=== PATIENT | female | born 1995 | race Caucasian/White ===

== ENCOUNTER 2017-02-06 20:33 | Inpatient (IN) | payer BC ==
[~2017-02-06] VITALS: Ht 144.8 cm; Wt 41.9 kg
[2017-02-06 21:40] VITALS: Ht 144.8 cm; Wt 41.9 kg
[2017-02-06] MEDS ORDERED: ONDANSETRON 4 MG TAB PO PRN (22:00)
[2017-02-06] MEDS ORDERED: PROMETHAZINE 25 MG SUPP PR PRN (22:00)
[2017-02-06] MEDS ORDERED: ACETAMINOPHEN/CODEINE #3 TAB PO PRN (22:00)
[2017-02-06] MEDS ORDERED: ACET1TAB40 PO (22:09)
[2017-02-06] MEDS ORDERED: ONDA4TAB14 PO (22:09)
[2017-02-06] MEDS ORDERED: PROM25SU40 RC (22:09)
[2017-02-06] MEDS ORDERED: PANT40TA4 PO (22:09)
[2017-02-06] MEDS: DEXTROSE 5%-0.9% NACL 1,000 ML IV SCH (22:58)
[2017-02-06] MEDS: HYDROmorphONE 1 MG/ML SYG IV PRN (22:59)
[2017-02-06] MEDS ORDERED: ACETAMINOPHEN 325 MG TAB PO PRN (23:00)
[2017-02-06] MEDS ORDERED: ONDANSETRON 4 MG INJ IV PRN (23:00)
[2017-02-07] MEDS: PANTOPRAZOLE 40 MG INJ IV SCH (05:23)
[2017-02-07] MEDS: HYDROmorphONE 1 MG/ML SYG IV PRN ×2 (05:27→13:40)
[2017-02-07] MEDS ORDERED: PANTOPRAZOLE (EC) 40 MG TAB PO SCH (06:00)
[2017-02-07 06:10] LABS: ADD SCAN DIFF NO
[2017-02-07 06:37] LABS: BASOPHILS % 0.4 % (0.0-2.0); EOSINOPHILS # 0.1 10^3/ul (0.0-0.5); HEMATOCRIT 29.5 % (37.0-47.0); HEMOGLOBIN 10.3 g/dl (12.0-16.0); LYMPHOCYTES # 3.7 10^3/ul (0.8-2.9); LYMPHOCYTES % 52.4 % (18.0-55.0); MEAN CORPUSCULAR HEMOGLOBIN 31.4 pg (29.0-33.0); MEAN CORPUSCULAR HGB CONC 34.9 g/dl (32.0-37.0); MEAN CORPUSCULAR VOLUME 89.9 fl (72.0-104.0); MEAN PLATELET VOLUME 9.3 fl (7.4-10.4); MONOCYTE # 0.5 10^3/ul (0.3-0.9); MONOCYTES % 6.8 % (0.0-13.0); NEUTROPHIL # 2.7 10^3/ul (1.6-7.5); NEUTROPHILS % 39.1 % (30.0-74.0); PLATELET COUNT 318 10^3/UL (140-415); RED BLOOD COUNT 3.28 10^6/ul (4.20-5.40); RED CELL DISTRIBUTION WIDTH 12.4 % (11.5-14.5)
[2017-02-07 06:38] LABS: CALCIUM 8.3 mg/dl (8.4-10.2); CREATININE 0.55 mg/dl (0.44-1.00)
[2017-02-07 07:15] VITALS: BP 101/67; RESP 16
[2017-02-07] MEDS ORDERED: POTASSIUM CHLORIDE 250 ML IVPB ONE (15:00)
[2017-02-07] MEDS: DEXTROSE 5%-0.9% NACL 1,000 ML IV SCH (15:21)
[2017-02-07] MEDS ORDERED: ZOLPIDEM 5 MG TAB PO PRN (16:00)
--- NOTE | 2017-02-07 17:53 | QN ---
Documentation Comment [id number] EMERY CID MD Feb 07, 2017 17:53
--- NOTE | 2017-02-07 18:08 | HP ---
DATE OF ADMISSION: 02/06/2017 HISTORY OF PRESENT ILLNESS: The patient is a 21-year-old female recently was discharged from [facility] diagnosis of acute appendicitis status post appendectomy. Presented to [facility] with a bdominal pain. The patient's CT of the abdomen done shows patient has been a postop fluid collectio n, but otherwise unremarkable. The patient was sent here for further management. The patient's hem atocrit 29.5, potassium 3, is going to be repleted. The patient is being monitored. PAST MEDICAL HISTORY: Appendectomy. ALLERGIES: NEGATIVE. FAMILY HISTORY: Negative. SOCIAL HISTORY: Negative. MEDICATION AT HOME: The patient is on: 1. Tylenol with codeine. 2. Zofran. 3. Protonix. 4. Promethazine. REVIEW OF SYSTEMS HEENT: Unremarkable. RESPIRATORY: Unremarkable. ABDOMEN: Abdominal pain, getting better. EXTREMITIES: Unremarkable. PHYSICAL EXAMINATION: GENERAL: Pale-looking female, awake, alert. VITAL SIGNS: Stable with pulse 69, blood pressure 101/67. HEAD: Atraumatic, normocephalic. Pupils equal, reactive. NECK: Supple, no JVD. LUNGS: Clear. CARDIOVASCULAR: S1, S2 are normal. ABDOMEN: Soft, nontender. Bowel sounds present. No palpable mass. EXTREMITIES: No cyanosis, clubbing, or edema. CENTRAL NERVOUS SYSTEM: The patient is awake, alert, no deficit. LABORATORY DATA: Hematocrit 29.5, potassium 3. IMPRESSION: Status post appendectomy. Postop pain, resolving hypokalemia. PLAN: Give this patient a regular diet, potassium supplementation. The patient will be encouraged to ambulate. Dictated By: EMERY LOCKHART/NTS Conf#: [id number] DID#: [id number]
[2017-02-07 20:00] VITALS: BP 100/58; RESP 18
[2017-02-08] MEDS: PANTOPRAZOLE 40 MG INJ IV SCH (05:32)
[2017-02-08 05:54] LABS: POTASSIUM 3.4 mmol/L (3.5-5.1)
[2017-02-08 05:57] LABS: CREATININE 0.56 mg/dl (0.44-1.00)
[2017-02-08 05:58] LABS: CALCIUM 8.3 mg/dl (8.4-10.2)
[2017-02-08 07:20] VITALS: BP 99/64; RESP 16
[2017-02-08] MEDS: DEXTROSE 5%-0.9% NACL 1,000 ML IV SCH (12:30)
[2017-02-08] MEDS ORDERED: POTASSIUM CHLORIDE (SR) 10 MEQ TAB PO ONE (17:00)
--- NOTE | 2017-02-08 17:05 | PDOCDIS ---
Discharge Instructions CONDITION Patient Condition: Stable HOME CARE INSTRUCTIONS: Special Diet: Regular diet ACTIVITY: Activity Restrictions: Slowly Increase Activity FOLLOW UP/APPOINTMENTS Appointments f/u own pcp [address] kelley 1 wk EMERY CID MD Feb 08, 2017 17:05
[2017-02-08] MEDS ORDERED: POTA20TA96 PO (17:07)
--- NOTE | 2017-02-08 18:54 | PN ---
Date/Time of Note Date/Time of Note DATE: 02/08/17 TIME: 18:53 Assessment/Plan VTE Prophylaxis VTE Prophylaxis Intervention: other Lines/Catheters IV Catheter Type (from Nrs): Peripheral IV Urinary Cath still in place: No Assessment/Plan Chief Complaint/Hosp Course IMPRESSION: Status post appendectomy. Postop pain, resolving hypokalemia. plan kcl and home Problems: Subjective 24 Hr Interval Summary Cardiovascular: no complaints Gastrointestinal: no complaints Exam/Review of Systems Vital Signs Vitals Vital Signs Date Time Temp Pulse Resp B/P Pulse Ox O2 Delivery O2 Flow Rate FiO2 02/08/17 07:20 98.5 68 16 99/64 94 Intake and Output 02/07/17 02/07/17 02/08/17 15:00 23:00 07:00 Intake Total 1930 ml 900 ml Balance 1930 ml 900 ml Exam Neck: supple Respiratory: clear to auscultation Cardiovascular: regular rate and rhythm Gastrointestinal: bowel sounds (+), soft Results Result Diagram: 02/07/17 0538 02/08/17 0454 Results 24 hrs Laboratory Tests Test 02/08/17 04:54 Sodium Level 139 Potassium Level 3.4 L Chloride Level 105 Carbon Dioxide Level 24 Anion Gap 13 Blood Urea Nitrogen 7 Creatinine 0.56 Glucose Level 94 Calcium Level 8.3 L Medications Medications Current Medications Dextrose/Sodium Chloride (D5-NS) 1,000 ml @ 50 mls/hr Q20H IV Last administered on 02/08/17 12:30; Admin Dose 50 MLS/HR; Start 02/06/17 at 23:00 Ondansetron HCl (Zofran Inj) 4 mg Q4H PRN IV NAUSEA AND/OR VOMITING; Start 02/06 at 23:00 Acetaminophen (Tylenol Tab) 650 mg Q6H PRN PO PAIN AND OR ELEVATED TEMP; Start 02/06/17 at 23:00 Hydromorphone HCl (Dilaudid) 1 mg Q4H PRN IV PAIN Last administered on 13:40; Admin Dose 1 MG; Start 02/06/17 at 23:00 Zolpidem Tartrate (Ambien) 5 mg HS PRN PO INSOMNIA Last administered on 21:09; Admin Dose 5 MG; Start 02/07/17 at 16:00 Pantoprazole (Protonix Tab) 40 mg DAILY@06 PO ; Start 02/09/17 at 06:00 EMERY CID MD Feb 08, 2017 18:54
[2017-02-09] MEDS ORDERED: PANTOPRAZOLE (EC) 40 MG TAB PO SCH (06:00)
== END 2017-02-08 20:19 | disposition home or self-care (01) | DRG 948 ==
LOC: PP2 20:33
PROVIDERS: ADMIT Internal Medicine Nephrology; ATTEND Internal Medicine Nephrology
DX: G89.18 Other acute postprocedural pain (principal); E87.6 Hypokalemia; Z98.890 Other specified postprocedural states
CPT/HCPCS: 80048; 85025; 87081; C9113; J1170; J3480; J7042

== ENCOUNTER 2017-05-20 14:28 | Emergency (ER) | payer BC ==
[~2017-05-20] VITALS: Ht 144.8 cm; Wt 42.0 kg
[~2017-05-20 14:28] MED LIST: ACET1TAB40 PO; ONDA4TAB14 PO; PANT40TA4 PO; POTA20TA96 PO; PROM25SU40 RC
[2017-05-20 14:32] VITALS: Ht 144.8 cm; Wt 42.0 kg
[2017-05-20] MEDS ORDERED: ONDANSETRON 4 MG INJ IV STA ×2 (15:43→19:57)
[2017-05-20] MEDS ORDERED: SOD CHLORIDE 0.9% 1,000 ML IV ONE (16:00)
[2017-05-20] MEDS ORDERED: FAMOTIDINE 20 MG INJ IV ONE (16:00)
[2017-05-20] MEDS ORDERED: LIDOCAINE/MYLANTA 40 ML BTL PO ONE (16:00)
[2017-05-20 16:05] LABS: ADD SCAN DIFF NO
[2017-05-20 16:12] LABS: BASOPHILS % 0.2 % (0.0-2.0); HEMATOCRIT 38.2 % (37.0-47.0); HEMOGLOBIN 13.2 g/dl (12.0-16.0); LYMPHOCYTES # 1.4 10^3/ul (0.8-2.9); LYMPHOCYTES % 14.8 % (18.0-55.0); MEAN CORPUSCULAR HGB CONC 34.6 g/dl (32.0-37.0); MEAN CORPUSCULAR VOLUME 89.7 fl (72.0-104.0); MEAN PLATELET VOLUME 8.9 fl (7.4-10.4); MONOCYTE # 0.5 10^3/ul (0.3-0.9); MONOCYTES % 4.7 % (0.0-13.0); NEUTROPHIL # 7.7 10^3/ul (1.6-7.5); NEUTROPHILS % 79.9 % (30.0-74.0); PLATELET COUNT 350 10^3/UL (140-415); RED BLOOD COUNT 4.26 10^6/ul (4.20-5.40); RED CELL DISTRIBUTION WIDTH 12.6 % (11.5-14.5); WHITE BLOOD COUNT 9.6 10^3/ul (4.8-10.8)
[2017-05-20 16:20] LABS: ADD UMIC YES; UR ASCORBIC ACID 20 mg/dL (NEGATIVE); UR BACTERIA FEW /HPF (NONE SEEN); UR BILIRUBIN (Dip) NEGATIVE (NEGATIVE); UR BLOOD (Dip) NEGATIVE (NEGATIVE); UR CLARITY SLIGHTLY CLOUDY (CLEAR); UR COLOR YELLOW (YELLOW); UR GLUCOSE (Dip) NEGATIVE (NEGATIVE); UR KETONES (Dip) 1+ mg/dL (NEGATIVE); UR LEUKOCYTE ESTERASE (Dip) NEGATIVE Leu/ul (NEGATIVE); UR MUCUS MANY /HPF (NONE SEEN); UR NITRITE (Dip) NEGATIVE (NEGATIVE); UR RBC 4 /HPF (0-5); UR SQUAMOUS EPITHELIAL CELL FEW /HPF (FEW); UR TOTAL PROTEIN (Dip) 1+ mg/dl (NEGATIVE); UR UROBILINOGEN (Dip) NEGATIVE (NEGATIVE)
[2017-05-20] MEDS ORDERED: METOCLOPRAMIDE 10 MG INJ IV ONE ×2 (16:30→21:00)
[2017-05-20] MEDS ORDERED: morphine 4 MG/ML VIAL IV STA ×2 (16:30→20:42)
[2017-05-20 16:33] LABS: ALBUMIN 5.3 g/dl (3.3-4.9); ALBUMIN/GLOBULIN RATIO 1.43; BILIRUBIN,INDIRECT 0.8 mg/dl (0-1.1); BILIRUBIN,TOTAL 0.8 mg/dl (0.2-1.3); CALCIUM 10.2 mg/dl (8.4-10.2); CREATININE 0.75 mg/dl (0.44-1.00); POTASSIUM 2.9 mmol/L (3.5-5.1)
[2017-05-20] MEDS ORDERED: POTASSIUM CHLORIDE (SR) 20 MEQ TAB PO STA (16:49)
[2017-05-20] MEDS ORDERED: MAGNESIUM SULFATE 1 GM/D5W 100 ML IVPB ONE (17:00)
[2017-05-20] MEDS ORDERED: POTASSIUM CHLORIDE 250 ML IVPB ONE (17:00)
--- NOTE | 2017-05-20 17:45 | RADRPT ---
PROCEDURE: Right Upper Quadrant Ultrasound. CLINICAL INDICATION: Abdominal Pain TECHNIQUE: Multiple real-time images were acquired of the patient's right upper quadrant abdomen a nd retroperitoneum utilizing a high resolution transducer. COMPARISON: None FINDINGS: The liver measures 14.5 cm, and demonstrates normal echogenicity. The main portal vein is patent wit h proper directional flow. There is no intrahepatic biliary ductal dilatation. The extrahepatic comm on bile duct measures 2 mm. The gallbladder is without stones, wall thickening, or pericholecystic fluid. The visualized pancreas is unremarkable. The right kidney measures 9.4 x 3.7 x 4.4 cm and demonstrates normal echotexture. There is no right renal calculus or hydronephrosis. The visualized abdominal aorta and IVC are grossly unremarkable. IMPRESSION: Unremarkable right upper quadrant abdominal ultrasound. No cholelithiasis or acute cholecystitis. Normal CBD. RPTAT: EE Physician Gavino Date Time Electronically viewed and signed by Physician Gavino on 05/20/2017 17:45 /
[2017-05-20] MEDS ORDERED: FAMO-96 PO (18:56)
[2017-05-20] MEDS ORDERED: ONDA4TAB14 PO (18:56)
--- NOTE | 2017-05-20 19:03 | ERD ---
ER Documentation Chief Complaint Date/Time DATE: 05/20/17 TIME: 18:57 Chief Complaint sent chip ACKERMAN for eval N/V x 4 days (TEJAL GUTIERREZ PA-C) HPI 21-year-old female patient with a past medical history of ovarian cysts, liver nodule presents to the ED complaining of nausea and vomiting that started persistently and intermittently for 2 weeks. Reports that she saw her primary care physician on Wednesday and obtained a CAT scan. States that she was seen at [facility] yesterday and had an ultrasound which was negative. Reports that her pain is predominantly in the right and left upper quadrant region. Patient sees Dr. Winters, water rights specialist. Denies any fever, chills, chest pain, shortness of breath, wheezing, diarrhea, constipation, vaginal discharge, vaginal bleeding, dysuria, urgency, frequency, hematuria. States that her last menses was 2 weeks ago. Patient also had a previous status post appendectomy. (TEJAL GUTIERREZ PA-C) ROS All systems reviewed and are negative except as per history of present illness. (TEJAL GUTIERREZ PA-C) Medications Home Meds Active Scripts Metoclopramide* (Reglan*) 10 Mg Tablet, 10 MG PO Q6 Y for NAUSEA AND/OR VOMITING , #10 TAB Prov:POLY BLISS 05/20/17 Famotidine* (Pepcid*) 20 Mg Tablet, 20 MG PO BID, #30 TAB Prov:TEJAL GUTIERREZ PA-C 05/20/17 Ondansetron (Ondansetron Odt) 4 Mg Tab.rapdis, 4 MG PO Q6H Y for NAUSEA AND/OR VOMITING, #10 TAB Prov:TEJAL GUTIERREZ PA-C 05/20/17 Potassium Chloride* (Potassium Chloride*) 20 Meq Tablet.er, 20 MEQ PO DAILY for 7 Days, TAB.SA Prov:EMERY CID MD 02/08/17 Reported Medications Promethazine HCl (Promethazine HCl) 25 Mg Supp.rect, 25 MG RC Q6 for NAUSEA, SUPP.RECT 02/06/17 Pantoprazole (Protonix) 40 Mg Tabec, 40 MG PO DAILY, TAB 02/06/17 Ondansetron (Ondansetron Odt) 4 Mg Tab.rapdis, 4 MG PO Q8 Y for NAUSEA AND/OR VOMITING, TAB 02/06/17 Acetaminophen with Codeine (Acetaminophen-Cod #3 Tablet) 1 Each Tablet, 1 TAB PO Q6H for PAIN, #7 TAB 02/06/17 Allergies Allergies: Coded Allergies: No Known Allergies (Verified Allergy, Unknown, 05/20/17) PMhx/Soc History of Surgery: Yes Anesthesia Reaction: No Hx Neurological Disorder: No Hx Respiratory Disorders: Yes (Bronchitis) Hx Cardiac Disorders: No Hx Psychiatric Problems: Yes (i get anxious really bad") Hx Alcohol Use: No Hx Substance Use: Yes Hx Tobacco Use: Yes Smoking Status: Current every day smoker (TEJAL GUTIERREZ PA-C) Physical Exam Vitals Vital Signs Date Time Temp Pulse Resp B/P Pulse Ox O2 Delivery O2 Flow Rate FiO2 05/20/17 14:32 99.5 78 20 137/93 100 (POLY BLISS) Vitals Vital Signs Date Time Temp Pulse Resp B/P Pulse Ox O2 Delivery O2 Flow Rate FiO2 05/20/17 14:32 99.5 78 20 137/93 100 (TEJAL GUTIERREZ PA-C) Physical Exam Const: [id number]-[id number], well-nourished. In no acute distress. Head: Atraumatic, normocephalic Eyes: Normal Conjunctiva without injection. No purulent discharge. ENT: Normal external ear, nose. Moist oropharynx without tonsillar exudates. Non -erythematous pharynx. Uvula midline. No drooling. No trismus. Neck: No cervical midline tenderness. Full range of motion. No meningismus. No cervical lymphadenopathy. No JVD. Resp: Clear to auscultation bilaterally. No wheezing, rhonchi, rales, or crackles. No accessory muscle use. No retractions. Cardio: Regular rate and rhythm. No murmurs, rubs or gallops. Abd: Soft, tenderness to palpation of the right and left upper quadrant, non distended. Normal bowel sounds. No palpable masses. No rebound tenderness. No guarding. Negative McBurney's point. Negative psoas sign. Negative obturator sign. Skin: No petechiae or rashes Back: No midline tenderness. No CVA tenderness. Ext: No cyanosis, or edema. Neur: Awake and alert. Normal gait. Normal coordination. Psych: Normal Mood and Affect (TEJAL GUTIERREZ PA-C) Results 24 hrs Laboratory Tests Test 05/20/17 15:20 05/20/17 15:45 05/20/17 21:00 White Blood Count 9.610^3/ul Red Blood Count 4.2610^6/ul Hemoglobin 13.2g/dl Hematocrit 38.2% Mean Corpuscular Volume 89.7fl Mean Corpuscular Hemoglobin 31.0pg Mean Corpuscular Hemoglobin Concent 34.6g/dl Red Cell Distribution Width 12.6% Platelet Count 17818^3/UL Mean Platelet Volume 8.9fl Neutrophils % 79.9% Lymphocytes % 14.8% Monocytes % 4.7% Eosinophils % 0.0% Basophils % 0.2% Nucleated Red Blood Cells % 0.0/100WBC Neutrophils # 7.710^3/ul Lymphocytes # 1.410^3/ul Monocytes # 0.510^3/ul Eosinophils # 0.010^3/ul Basophils # 0.010^3/ul Nucleated Red Blood Cells # 0.010^3/ul Sodium Level 131mmol/L 132mmol/L Potassium Level 2.9mmol/L 4.7mmol/L Chloride Level 97mmol/L 106mmol/L Carbon Dioxide Level 23mmol/L 21mmol/L Anion Gap 14 10 Blood Urea Nitrogen 8mg/dl 6mg/dl Creatinine 0.75mg/dl 0.72mg/dl Glucose Level 93mg/dl 89mg/dl Calcium Level 10.2mg/dl 8.5mg/dl Total Bilirubin 0.8mg/dl Direct Bilirubin 0.00mg/dl Indirect Bilirubin 0.8mg/dl Aspartate Amino Transf (AST/SGOT) 24IU/L Alanine Aminotransferase (ALT/SGPT) 32IU/L Alkaline Phosphatase 47IU/L Total Protein 9.0g/dl Albumin 5.3g/dl Globulin 3.70g/dl Albumin/Globulin Ratio 1.43 Lipase 236U/L Urine Color YELLOW Urine Clarity SLIGHTLY CLOUDY Urine pH 6.0 Urine Specific Wideman 1.020 Urine Ketones 1+mg/dL Urine Nitrite NEGATIVEmg/dL Urine Bilirubin NEGATIVEmg/dL Urine Urobilinogen NEGATIVEmg/dL Urine Leukocyte Esterase NEGATIVELeu/ul Urine Microscopic RBC 4/HPF Urine Microscopic WBC 10/HPF Urine Squamous Epithelial Cells FEW/HPF Urine Bacteria FEW/HPF Urine Mucus MANY/HPF Urine Hemoglobin NEGATIVEmg/dL Urine Glucose NEGATIVEmg/dL Urine Total Protein 1+mg/dl Current Medications Medications (Trade) Dose Ordered Sig/Frederick Route PRN Reason Start Time Stop Time Status Last Admin Dose Admin Sodium Chloride (NS) 1,000 ml @ 1,000 mls/hr Q1H ONCE IV 05/20/17 16:00 05/20/17 16:59 DC 05/20/17 15:50 Ondansetron HCl (Zofran Inj) 4 mg ONCE STAT IV 05/20/17 15:43 05/20/17 15:44 DC 05/20/17 15:49 Famotidine (Pepcid Iv) 20 mg ONCE ONCE IV 05/20/17 16:00 05/20/17 16:01 DC 05/20/17 15:49 Miscellaneous Medication (Gi Cocktail (2)) 40 ml ONCE ONCE PO 05/20/17 16:00 05/20/17 16:01 DC 05/20/17 15:49 Metoclopramide HCl (Reglan) 10 mg ONCE ONCE IV 05/20/17 16:30 05/20/17 16:31 DC 05/20/17 16:37 Morphine Sulfate 4 mg 4 mg ONCE STAT IV 05/20/17 16:30 05/20/17 16:31 DC 05/20/17 16:37 Magnesium Sulfate/ Dextrose 100 ml @ 100 mls/hr ONCE ONCE IVPB 05/20/17 17:00 05/20/17 17:59 DC 05/20/17 17:32 Potassium Chloride (KCl 40 MEQ/250 ML NS) 250 ml @ 62.5 mls/hr ONCE ONCE IVPB 05/20/17 17:00 05/20/17 20:59 DC 05/20/17 18:43 Potassium Chloride (Klor-Con 20) 60 meq ONCE STAT PO 05/20/17 16:49 05/20/17 16:52 DC 05/20/17 17:08 Ondansetron HCl (Zofran Inj) 4 mg ONCE STAT IV 05/20/17 19:57 05/20/17 19:59 DC 05/20/17 20:28 Morphine Sulfate (morphine) 4 mg ONCE STAT IV 05/20/17 20:42 05/20/17 20:44 DC 05/20/17 20:54 Metoclopramide HCl (Reglan) 10 mg ONCE ONCE IV 05/20/17 21:00 05/20/17 21:00 DC Diphenhydramine HCl (Benadryl) 25 mg ONCE ONCE IV 05/20/17 21:00 05/20/17 21:00 DC (POLY BLISS) Procedures/MDM This is a 21-year-old female patient with a past medical history of status post appendectomy, ovarian cyst, liver nodule presents to the ED complaining of right and left upper quadrant abdominal pain associated with vomiting that started 10 days ago. Patient is afebrile and nontoxic-appearing. Patient was further worked up with CBC, CMP, lipase, UA, urine , gallbladder ultrasound. Patient's pain and symptoms have improved after treatment with 1 L of normal saline, 4 mg IV morphine, 4 mg IV Zofran, 10 mg IV Reglan. CBC: No leukocytosis. No e/o of systemic infection. No e/o anemia. CMP: No e/o severe acidosis, alkalosis, renal failure, diabetic ketoacidosis, liver disease. Hypokalemia of 2.9 noted. Patient was given 1 gram of magnesium , 40 mEq IV potassium, 60 mEq p.o. potassium. Lipase within normal limits. Urine: No leukocyte esterase, no nitrites, no hematuria. Urine : negative EKG reviewed and interpreted by Dr. Zamora Rate/Rhythm: [75 bpm, Normal Sinus Rhythm] No ectopy, no ST elevations, normal axis. No peaked T waves. QRS, ST, T-waves: [No changes consistent w/ acute ischemia] Impression: [No evidence of ischemia or arrhythmia] A differential diagnosis considered includes but is not limited to gastritis, GERD, peptic ulcer disease, cholecystitis, choledocholithiasis, cholangitis, pancreatitis, appendicitis, bowel obstruction, ileus, volvulus, nephrolithiasis , pyelonephritis, hepatitis, perforated viscus, diverticulitis, abdominal hernia , acute abdomen, mesenteric ischemia or other emergent conditions. After patient receives her medications to correct her hypokalemia, a BMP to recheck the potassium will be checked at 8:48 PM. This patient has been signed out to my colleague, Poly Bliss PA-C. Pending p.o. challenge and correction of potassium, this will determine whether patient will be discharged or admitted. Low suspicion for acute myocardial infarction, pneumothorax, pneumonia, cardiac tamponade, pulmonary embolism, AAA, aortic dissection, Boerhaave's syndrome, cardiac dysrhythmias,meningitis, intracranial bleed, seizure, stroke, TIA or other emergent conditions. This case was discussed with my supervising physician Dr. Zamora who agreed with the management and discharge plan. Patient is discharged, she will be strictly instructed to follow-up with her water rights specialist tomorrow for further evaluation and treatment of her liver nodule. She should also obtain a referral to electrical software engineer for further evaluation and treatment. Patient will be discharged with a prescription for famotidine and Zofran. Patient does have pain medications prescribed by her physician. Instructed to return to the ED for any worsening symptoms such as fever, worsening abdominal pain, chest pain, SOB, intractable vomiting, etc. (TEJAL GUTIERREZ PA-C) This 21 y.o female was reexamined by me. Patient felt significantly better, was able to tolerate a PO challenge and was even requesting a meal. I checked patient's labs and her potassium was corrected.She did not have any chest pain or SOB or any other new symptoms throughout the rest of the ER course. She is well appearing and was comfortable going home. Patient was advised to follow up with a GI doctor as patient told me this has been an ongoing problem over the last few months. Patient will be discharged with Tejal Gutierrez's EDMUND instructions and prescriptions. (POLY BLISS) Departure Diagnosis: Primary Impression: Vomiting Vomiting type: unspecified Vomiting Intractability: unspecified Nausea presence: unspecified Qualified Code: R11.10 - Vomiting, intractability of vomiting not specified, presence of nausea not specified, unspecified vomiting type Additional Impression: Hypokalemia Condition: Stable Patient Instructions: Hypokalemia, Abdominal Pain, Unknown Cause, (Female), Vomiting (8Y-Adult) Referrals: COMMUNITY CLINICS YOU HAVE RECEIVED A MEDICAL SCREENING EXAM AND THE RESULTS INDICATE THAT YOU DO NOT HAVE A CONDITION THAT REQUIRES URGENT TREATMENT IN THE EMERGENCY DEPARTMENT. FURTHER EVALUATION AND TREATMENT OF YOUR CONDITION CAN WAIT UNTIL YOU ARE SEEN IN YOUR DOCTORS OFFICE WITHIN THE NEXT 1-2 DAYS. IT IS YOUR RESPONSIBILITY TO MAKE AN APPOINTMENT FOR FOLOW-UP CARE. IF YOU HAVE A PRIMARY DOCTOR --you should call your primary doctor and schedule an appointment IF YOU DO NOT HAVE A PRIMARY DOCTOR YOU CAN CALL OUR PHYSICIAN REFERRAL HOTLINE AT IF YOU CAN NOT AFFORD TO SEE A PHYSICIAN YOU CAN CHOSE FROM THE FOLLOWING [facility] [address] [facility] [address] [facility] [address] [facility] [address] [facility] [address] [facility]. [facility] [address] [facility]. [facility] YOU HAVE RECEIVED A MEDICAL SCREENING EXAM AND THE RESULTS INDICATE THAT YOU DO NOT HAVE A CONDITION THAT REQUIRES URGENT TREATMENT IN THE EMERGENCY DEPARTMENT. FURTHER EVALUATION AND TREATMENT OF YOUR CONDITION CAN WAIT UNTIL YOU ARE SEEN IN YOUR DOCTORS OFFICE WITHIN THE NEXT 1-2 DAYS. IT IS YOUR RESPONSIBILITY TO MAKE AN APPOINTMENT FOR FOLOW-UP CARE. IF YOU HAVE A PRIMARY DOCTOR --you should call your primary doctor and schedule and appointment IF YOU DO NOT HAVE A PRIMARY DOCTOR YOU CAN CALL OUR PHYSICIAN REFERRAL HOTLINE AT . IF YOU CAN NOT AFFORD TO SEE A PHYSICIAN YOU CAN CHOSE FROM THE FOLLOWING [facility] [address] [place] [address] [facility] [address] [place] [address] [facility] [address] [place] [address] [facility]ENT [facility]CIALT[facility] Additional Instructions: FOLLOW UP WITH YOUR PRIMARY CARE PHYSICIAN and Dr. Vianey ACKERMAN, specialist for further evaluation and treatment and a referral to a electrical software engineer.Return to this facility if you are not improving as expected. TEJAL GUTIERREZ PA-C May 20, 2017 19:02 POLY BLISS May 20, 2017 21:41
[2017-05-20] MEDS ORDERED: DIPHENHYDRAMINE 50 MG INJ IV ONE (21:00)
[2017-05-20 21:22] LABS: CALCIUM 8.5 mg/dl (8.4-10.2); CREATININE 0.72 mg/dl (0.44-1.00); POTASSIUM 4.7 mmol/L (3.5-5.1)
[2017-05-20] MEDS ORDERED: METO10TA92 PO (22:34)
[2017-05-20 22:37] VITALS: BP 118/80
== END 2017-05-20 22:38 | disposition home or self-care (01) ==
LOC: FTE 14:28
DX: R11.10 Vomiting, unspecified (principal); E87.6 Hypokalemia; F17.210 Nicotine dependence, cigarettes, uncomplicated
CPT/HCPCS: 36415; 76705; 80048; 80053; 81001; 83690; 85025; 93005; 96361; 96365; 96375; 96376; J2270; J2405; J2765; J3475; J3480; J7030; Z7502; Z7610

== ENCOUNTER 2017-07-23 14:05 | Day surgery (SDC) | payer BC ==
[~2017-07-23] VITALS: Ht 147.3 cm; Wt 44.6 kg
[~2017-07-23 14:05] MED LIST changes: +FAMO-96 PO; +METO10TA92 PO
[2017-07-23 14:36] VITALS: Ht 147.3 cm; Wt 44.6 kg
[2017-07-23] MEDS ORDERED: PRE-NATAL (14:44)
[2017-07-23] MEDS ORDERED: FOLIC ACID (14:44)
[2017-07-23] MEDS ORDERED: LIDOCAINE 4% SOLUTION 50 ML BTL ONE (15:36)
[2017-07-23 15:41] VITALS: BP 100/72; PULSE 89; RESP 18
--- NOTE | 2017-07-23 16:00 | OPPN ---
Date/Time of Note Date/Time of Note DATE: 07/23/17 TIME: 15:58 Operative Report Preoperative Diagnosis Nausea vomiting abdominal pain in the epigastric area Postoperative Diagnosis Normal upper endoscopy Operation/Procedure Performed EGD random gastric biopsy to rule out H. pylori Provider: JOSH SUMNER MD Anesthesia Type: moderate sedation (Versed 3 mg fentanyl [employer]) Estimated blood loss: none Transfusion Required: no Specimen: none Grafts/Implants: none Complications: no JOSH SUMNER MD Jul 23, 2017 16:00
[2017-07-23] MEDS ORDERED: FENTAnyl 50 MCG/ML VIAL ONE (16:25)
[2017-07-23] MEDS ORDERED: MIDAZOLAM 1 MG/ML 2 ML INJ ONE ×2 (16:25)
--- NOTE | 2017-07-24 01:23 | GILP ---
DATE OF PROCEDURE: 07/23/2017 PREOPERATIVE DIAGNOSIS: Nausea, vomiting, and epigastric pain. PROCEDURE DONE: EGD random gastric biopsy. POSTOPERATIVE DIAGNOSIS: Essentially normal upper endoscopy. DESCRIPTION OF PROCEDURE: The patient was put in left lateral decubitus position. After obtaining informed consent, posterior pharynx anesthetized with 4 percent xylocaine very carefully advanced after sedation with 3 mg IV Versed and 75 mcg of fentanyl. The patient was sedated well. Advanced Olympus video upper endoscope into the esophagus, stomach, and duodenum up to second part. Examination is essentially normal esophagus, normal stomach including retroflexion and antegrade exam of the body, and antrum normal. Pyloric channel easily entered and the duodenal bulb, first and second part of the duodenum, normal. Scope was withdrawn back in the stomach. Even though it is normal, I did a random biopsy to rule out H. pylori, and then the scope was slowly withdrawn. The patient had no complications. RECOMMENDATION: Await for CT report and follow up as outpatient. Await for biopsy report, and, at present, no therapy has been started yet. She also indicated she is having blood in the urine. She is not certain whether she is having periods. This will be followed by the primary MD. Dictated By: Juany iKser MD /franklin/sangeeta /Document#: [id number] ; DR. TIMOTEO ELI
== END 2017-07-23 18:31 | disposition home or self-care (01) ==
LOC: GIL 14:05
PROVIDERS: ATTEND Internal Medicine
DX: R11.2 Nausea with vomiting, unspecified (principal); R10.13 Epigastric pain
CPT/HCPCS: 43239; 84703; 88305; J2250; J3010; Z7610

== ENCOUNTER 2019-03-28 11:53 | Emergency (ER) | payer BC, OTHER ==
[~2019-03-28] VITALS: Ht 149.9 cm; Wt 58.0 kg
[~2019-03-28 11:53] MED LIST changes: -ACET1TAB40 PO; -FAMO-96 PO; +FOLIC ACID; -METO10TA92 PO; -ONDA4TAB14 PO; -PANT40TA4 PO; -POTA20TA96 PO; +PRE-NATAL; -PROM25SU40 RC
[2019-03-28 12:45] VITALS: BP 123/80; PULSE 72; RESP 18; Ht 149.9 cm; Wt 58.0 kg
[2019-03-28] MEDS ORDERED: MECLIZINE 12.5 MG TAB PO ONE (14:30)
[2019-03-28] MEDS ORDERED: MECL-77 PO (16:03)
--- NOTE | 2019-03-28 16:07 | ERD ---
ER Documentation Chief Complaint Chief Complaint SOB WITH UNEXPLAINED DIZZINESS FOR A MONTH, NORMAL APPEARRNACE HPI 23-year-old female presents for dizziness and shortness of breath for 2-1/2 months. States that she has some nausea associated with the dizziness. States that is happening multiple times throughout the day. She states that she saw her primary care physician a month ago and nothing was done. Medical history of liver tumor and ovarian cyst. She states that the liver tumor is noncancerous based on CT scan done about 3 months ago. She is having follow-up with her primary physician for that. Patient is currently on her menstrual period. Otherwise denies chest pain. Denies fevers or chills. Denies abdominal pain or vomiting. No diarrhea noted. No other modifying factors noted. No treatments tried at home. ROS All systems reviewed and are negative except as per history of present illness. Medications Home Meds Active Scripts Meclizine Hcl* (Meclizine Hcl*) 25 Mg Tablet, 25 MG PO Q8H PRN for DIZZINESS, #30 TAB Prov:SAMANTHA RAY 03/28/19 Reported Medications [Folic Acid] No Conflict Check 07/23/17 [Pre-] No Conflict Check 07/23/17 Allergies Allergies: Coded Allergies: No Known Allergies (Verified Allergy, Unknown, 05/20/17) PMhx/Soc Medical and Surgical Hx: pt denies Medical Hx, pt denies Surgical Hx History of Surgery: No Anesthesia Reaction: No Hx Neurological Disorder: No Hx Respiratory Disorders: No Hx Cardiac Disorders: Yes (Intermittent chest pain.) Hx Psychiatric Problems: No Hx Miscellaneous Medical Probl: No Hx Alcohol Use: No Hx Substance Use: No Hx Tobacco Use: No Smoking Status: Never smoker FmHx Family History: No coronary disease Physical Exam Vitals Vital Signs Date Temp Pulse Resp B/P (MAP) Pulse Ox O2 O2 Flow FiO2 Time Delivery Rate 03/28/19 98.5 72 18 123/80 98 12:45 (94) Physical Exam Const: No acute distress Head: Atraumatic Eyes: Normal Conjunctiva, no nystagmus, EOMI, PERRL ENT: Normal External Ears, Nose and Mouth. Neck: Full range of motion. No meningismus. Resp: Clear to auscultation bilaterally Cardio: Regular rate and rhythm, no murmurs, peripheral pulses intact Abd: Soft, non tender, non distended. Normal bowel sounds Skin: No petechiae or rashes Back: No midline or flank tenderness Ext: No cyanosis, or edema, muscle strength 5 out of 5 bilateral upper lower extremities Neur: Awake and alert, bilateral upper and lower extremity sensation intact, positive [place]-Hallpike maneuver Psych: Normal Mood and Affect Result Diagram: 03/28/19 1441 03/28/19 1441 Results 24 hrs Laboratory Tests Test 03/28/19 14:41 White Blood Count 7.3 10^3/ul Red Blood Count 4.33 10^6/ul Hemoglobin 12.9 g/dl Hematocrit 39.0 % Mean Corpuscular Volume 90.1 fl Mean Corpuscular Hemoglobin 29.8 pg Mean Corpuscular Hemoglobin Concent 33.1 g/dl Red Cell Distribution Width 12.2 % Platelet Count 395 10^3/UL Mean Platelet Volume 8.5 fl Immature Granulocytes % 0.300 % Neutrophils % 63.8 % Lymphocytes % 30.6 % Monocytes % 4.4 % Eosinophils % 0.5 % Basophils % 0.4 % Nucleated Red Blood Cells % 0.0 /100WBC Immature Granulocytes # 0.020 10^3/ul Neutrophils # 4.7 10^3/ul Lymphocytes # 2.2 10^3/ul Monocytes # 0.3 10^3/ul Eosinophils # 0.0 10^3/ul Basophils # 0.0 10^3/ul Nucleated Red Blood Cells # 0.0 10^3/ul Sodium Level 142 mmol/L Potassium Level 4.5 mmol/L Chloride Level 109 mmol/L Carbon Dioxide Level 25 mmol/L Anion Gap 8 Blood Urea Nitrogen 7 mg/dl Creatinine 0.61 mg/dl Est Glomerular Filtrat Rate mL/min > 60 mL/min Glucose Level 97 mg/dl Calcium Level 9.9 mg/dl Total Bilirubin 0.5 mg/dl Direct Bilirubin 0.00 mg/dl Indirect Bilirubin 0.5 mg/dl Aspartate Amino Transf (AST/SGOT) 20 IU/L Alanine Aminotransferase (ALT/SGPT) 20 IU/L Alkaline Phosphatase 62 IU/L Total Protein 8.0 g/dl Albumin 4.6 g/dl Globulin 3.40 g/dl Albumin/Globulin Ratio 1.35 Current Medications Medications Dose Sig/[place] Start Time Status Last (Trade) Ordered Route PRN Stop Time Admin Dose Reason Admin Meclizine 25 mg ONCE ONCE 03/28/19 DC 03/28/19 HCl PO 14:30 14:38 (Antivert) 03/28/19 14:32 Procedures/MDM Medical Decision Making: Differential diagnosis includes but not limited to benign positional vertigo, labyrinthitis, CVA, electrolyte disorder Patient appeared well on physical exam. ED course: CBC: no e/o of systemic infection or severe anemia CMP: no e/o severe acidosis, alkalosis, renal failure, diabetic ketoacidosis, liver disease Chest X-ray 1V Interpreted by me: Soft Tissue: No acute abnormalities Bones: No acute abnormalities Mediastinum/Cardiac Silhouette/Lungs: No acute abnormalities Patient given meclizine with some relief of symptoms. Prescription(s): Patient given prescription for supportive medication(s). Advised regarding possible need for neurology referral if symptoms do not improve. Patient advised to follow up with PCP in 1-2 days. Patient advised to return to ED for new or worsening symptoms. Patient stable on discharge from the ED. Disclaimer: Inadvertent spelling and grammatical errors are likely due to EHR/dictation software use and do not reflect on the overall quality of patient care. Also, please note that the electronic time recorded on this note does not necessarily reflect the actual time of the patient encounter. Departure Diagnosis: Primary Impression: Dizziness Condition: Fair Patient Instructions: Dizziness (Vertigo) and Balance Problems: Ensuring Your Safety Referrals: [facility] YOU HAVE RECEIVED A MEDICAL SCREENING EXAM AND THE RESULTS INDICATE THAT YOU DO NOT HAVE A CONDITION THAT REQUIRES URGENT TREATMENT IN THE EMERGENCY DEPARTMENT. FURTHER EVALUATION AND TREATMENT OF YOUR CONDITION CAN WAIT UNTIL YOU ARE SEEN IN YOUR DOCTORS OFFICE WITHIN THE NEXT 1-2 DAYS. IT IS YOUR RESPONSIBILITY TO MAKE AN APPOINTMENT FOR FOLOW-UP CARE. IF YOU HAVE A PRIMARY DOCTOR --you should call your primary doctor and schedule an appointment IF YOU DO NOT HAVE A PRIMARY DOCTOR YOU CAN CALL OUR PHYSICIAN REFERRAL HOTLINE AT IF YOU CAN NOT AFFORD TO SEE A PHYSICIAN YOU CAN CHOSE FROM THE FOLLOWING [facility] [address] [facility]. [facility] [address] [facility] [address] [facility] [address] [facility] [address] [facility]. [facility] [address] Additional Instructions: Call your primary care doctor TOMORROW for an appointment during the next 1-2 days.See the doctor sooner or return here if your condition worsens before your appointment time. SAMANTHA RAY DO March 28, 2019 16:07
== END 2019-03-28 16:10 | disposition home or self-care (01) ==
LOC: FTE 11:53
DX: R42 Dizziness and giddiness (principal)
CPT/HCPCS: 71046; 80053; 85025; Z7502; Z7610